=== PATIENT | female | born 1955 | race Hispanic/Latino ===

== ENCOUNTER 2019-04-07 20:56 | Inpatient (IN) | payer OTHER ==
[~2019-04-07] VITALS: Ht 167.6 cm; Wt 97.0 kg
[2019-04-07] MEDS ORDERED: MORPHINE SULFATE 2 MG/ML 1ML SYG ONE (21:41)
[2019-04-07] MEDS ORDERED: SODIUM CHLORIDE 0.9% 1000ML 1,000 ML IV ONE (21:42)
[2019-04-07 21:51] LABS: APPEARANCE,URINE Clear (CLEAR); BILIRUBIN,URINE Small (NEGATIVE); COLOR,URINE Dark Yellow (YELLOW); GLUCOSE, URINE (UA) Negative (NEGATIVE); KETONES,URINE Negative (NEGATIVE); LEUKOCYTE ESTERASE ,URINE Trace (NEGATIVE); NITRATE,URINE Negative (NEGATIVE); OCCULT BLOOD,URINE Negative (NEGATIVE); PH,URINE 6.5 (5.0-8.0); PROTEIN,URINE Negative (NEGATIVE); UROBILINOGEN,URINE >=8.0 mg/dL (0.2-1.0)
[2019-04-07 22:01] LABS: BASOPHILS % (AUTO) 0.5 % (0.0-5.0); EOSINOPHILS % (AUTO) 0.5 % (0.0-8.0); HEMATOCRIT 34.6 % (36-48); LYMPHOCYTES % (AUTO) 28.1 % (21.0-51.0); MEAN CORPUSCULAR HEMOGLOBIN 32.9 pg (27.0-33.0); MEAN CORPUSCULAR HGB CONC 34.8 g/dL (32.0-36.0); MEAN CORPUSCULAR VOLUME 94.5 fL (79-99); MONOCYTES % (AUTO) 7.6 % (3.0-13.0); NEUTROPHILS % (AUTO) 63.3 % (40.0-77.0); NUCLEATED RED BLOOD CELLS 0.1 % (0.0-0.19); PLATELET COUNT (AUTO) 112 K/uL (130-400); RED BLOOD CELL COUNT(AUTO) 3.66 MIL/uL (4.00-5.50); RED CELL DISTRIBUTION WIDTH 14.9 % (11.0-15.5); WHITE BLOOD COUNT (AUTO) 7.4 K/uL (4.8-10.8)
[2019-04-07 22:01] LABS: BACTERIA,URINE Rare /HPF (None Seen); MUCUS,URINE Rare LPF (None Seen); RBC,URINE 0-1 /HPF (0-1); SQUAMOUS EPITHELIAL CELL,UR Rare /HPF (0-2)
[2019-04-07 22:12] LABS: CREATININE 0.7 mg/dL (0.5-1.5); POTASSIUM 3.5 mmol/L (3.5-5.1)
[2019-04-07 22:16] LABS: ALBUMIN 2.4 g/dL (3.5-5.0); BILIRUBIN,TOTAL 1.9 mg/dL (0.2-1.0); TOTAL PROTEIN, SERUM 6.8 g/dL (6.0-8.3)
[2019-04-07] MEDS ORDERED: DIATR MEGLU/DIATRIZOATE SODIUM 30 ML BOTTLE ONE (23:01)
[2019-04-07] MEDS ORDERED: ACETAMINOPHEN 325 MG TAB PO PRN (23:45)
[2019-04-07] MEDS ORDERED: LORAZEPAM 2 MG/ML 1 ML VIAL IVP PRN (23:45)
[2019-04-07] MEDS ORDERED: ONDANSETRON HCL 4 MG/2 ML VIAL IV PRN (23:45)
[2019-04-08] MEDS ORDERED: IOHEXOL 350 MG/ML 100ML INFUS..BTL IV ONE (00:40)
[2019-04-08 01:15] VITALS: BP 120/65
[2019-04-08 03:56] VITALS: BP 125/74
[2019-04-08] MEDS: SODIUM CHLORIDE 0.9% 1000ML 1,000 ML IV SCH ×3 (04:14→19:37)
[2019-04-08] MEDS: MORPHINE SULFATE 4 MG/1ML SYG IV PRN ×2 (07:46→16:09)
[2019-04-08 08:00] VITALS: BP 112/63
[2019-04-08] MEDS: FAMOTIDINE/PF 20 MG/2 ML VIAL IV SCH ×2 (08:24→21:13)
[2019-04-08] MEDS: ENOXAPARIN SODIUM 30 MG/0.3 ML SQ SCH ×2 (09:00→21:15)
--- NOTE | 2019-04-08 09:43 | NUR ---
SIMBA Muhammad met with pt who states that she lives with common law of 40 yrs,2 adult sons (36) and her sister who is [employer] - total care. 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 Because of her critical care clinical nurse specialist role, pt has not followed up on her care. Pt reports she was independent, no DME or HH prior to dc. Pt states she has started feeling really bad in recent weeks and has become weaker and loss of appetite. 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 Sister Umm Boyd [phone] is assisting with sister in law and sons are caring for their dad. Plan is home at ar Addendum: 04/08/19 at 0952 by JF FLOWERS Amended: Links added.
[2019-04-08 12:00] VITALS: BP 110/63
[2019-04-08 15:59] VITALS: BP 118/70
[2019-04-08 19:00] VITALS: BP 119/74
--- NOTE | 2019-04-08 19:12 | NUR ---
SURGICAL CONSULT Dr. Batista is aware of consult. He was notified in person by Dr. Berg during his rounds.
--- NOTE | 2019-04-08 20:13 | NUR ---
LOVENOX Held MA dose of lovenox S/T platelets at 112. Dr. Berg made aware and OK it.
[2019-04-08] MEDS: TEMAZEPAM 7.5 MG CAPSULE PO SCH (21:13)
[2019-04-08] MEDS ORDERED: POTASSIUM CHLORIDE 20 MEQ ERTAB PO SCH (21:15)
[2019-04-09] VITALS: BP 119/67
[2019-04-09] MEDS: ACETAMINOPHEN 325 MG TAB PO PRN (01:57)
[2019-04-09] MEDS: SODIUM CHLORIDE 0.9% 1000ML 1,000 ML IV SCH ×2 (02:03→13:18)
[2019-04-09 02:32] LABS: HEMATOCRIT 32.3 % (36-48); MEAN CORPUSCULAR HEMOGLOBIN 32.1 pg (27.0-33.0); MEAN CORPUSCULAR VOLUME 93.6 fL (79-99); RED BLOOD CELL COUNT(AUTO) 3.45 MIL/uL (4.00-5.50); WHITE BLOOD COUNT (AUTO) 6.1 K/uL (4.8-10.8)
[2019-04-09 02:33] LABS: EOSINOPHILS % (AUTO) 0.4 % (0.0-8.0); LYMPHOCYTES % (AUTO) 32.6 % (21.0-51.0); MEAN CORPUSCULAR HGB CONC 34.3 g/dL (32.0-36.0); MONOCYTES % (AUTO) 9.5 % (3.0-13.0); NEUTROPHILS % (AUTO) 57.3 % (40.0-77.0); PLATELET COUNT (AUTO) 92 K/uL (130-400); RED CELL DISTRIBUTION WIDTH 14.6 % (11.0-15.5)
[2019-04-09 02:34] LABS: BASOPHILS % (AUTO) 0.2 % (0.0-5.0); NUCLEATED RED BLOOD CELLS 0.1 % (0.0-0.19)
[2019-04-09 02:36] LABS: POTASSIUM 3.8 mmol/L (3.5-5.1)
[2019-04-09 02:37] LABS: ALBUMIN 1.9 g/dL (3.5-5.0); CREATININE 0.5 mg/dL (0.5-1.5); MAGNESIUM 1.5 mg/dL (1.80-2.40); PHOSPHORUS 2.5 mg/dL (2.5-4.9)
[2019-04-09] MEDS ORDERED: MAGNESIUM 2GM PREMIX 50ML 50 ML IV PRN ×2 (03:30→04:45)
--- NOTE | 2019-04-09 03:30 | NUR ---
Magnesium: 1.50 Magnesium result ( 1.50) was referred to on-call hospitalist. Written order made to place pt. on Magnesium protocol for <2.0. Magnesium 2gms per 50ml was administered as ordered at around 0435 am. Reported to AM shift accordingly.
[2019-04-09] MEDS ORDERED: MAGNESIUM 2GM PREMIX 50ML 50 ML IV ONE (04:33)
[2019-04-09 07:30] VITALS: BP 127/71
--- NOTE | 2019-04-09 08:31 | NUR ---
Notified Faith with IR pt's platlets at 92. She stated that should not be a problem, also notified her pt. received Juan last night @ 2100.
[2019-04-09 08:55] LABS: INR 1.28 (0.85-1.15); PARTIAL THROMBOPLASTIN TIME 35.3 SEC (26.3-35.5); PROTHROMBIN TIME 13.4 SEC (9.6-11.6)
[2019-04-09] MEDS: ENOXAPARIN SODIUM 30 MG/0.3 ML SQ SCH ×2 (09:00→21:00)
[2019-04-09] MEDS: FAMOTIDINE/PF 20 MG/2 ML VIAL IV SCH ×2 (09:01→21:14)
[2019-04-09 11:00] VITALS: BP 107/41
--- NOTE | 2019-04-09 11:31 | NUR ---
PROCEDURE DR Radha JULIO NOTIFIED OF SCHEDULED LIVER BIOPSY AND LOVENOX DOSE GIVEN LAST NIGHT AT 2100. PATIENT RESCHEDULED FOR TOMORROW IN AM AND HOLD LOVENOX. PROCEDURE OUTCOME REPORTED TO Leslee RESTREPO RN.
[2019-04-09] MEDS: MORPHINE SULFATE 4 MG/1ML SYG IV PRN (13:18)
[2019-04-09 16:00] VITALS: BP 118/72
[2019-04-09 19:00] VITALS: BP 112/76
[2019-04-09] MEDS: TEMAZEPAM 7.5 MG CAPSULE PO SCH (21:14)
[2019-04-10] VITALS (10 sets, daily range): BP systolic 96–154; BP diastolic 54–106
[2019-04-10] MEDS: SODIUM CHLORIDE 0.9% 1000ML 1,000 ML IV SCH ×3 (01:37→21:37)
[2019-04-10] MEDS ORDERED: SODIUM CHLORIDE 0.9% 100 ML IV ONE (02:49)
[2019-04-10] MEDS: MORPHINE SULFATE 4 MG/1ML SYG IV PRN ×3 (02:54→12:08)
[2019-04-10] MEDS: ACETAMINOPHEN 325 MG TAB PO PRN ×2 (03:16→12:14)
[2019-04-10 04:57] LABS: HEMATOCRIT 29.3 % (36-48); MEAN CORPUSCULAR HEMOGLOBIN 32.2 pg (27.0-33.0); MEAN CORPUSCULAR HGB CONC 34.5 g/dL (32.0-36.0); MEAN CORPUSCULAR VOLUME 93.3 fL (79-99); NUCLEATED RED BLOOD CELLS 0.2 % (0.0-0.19); PLATELET COUNT (AUTO) 110 K/uL (130-400); RED BLOOD CELL COUNT(AUTO) 3.14 MIL/uL (4.00-5.50); RED CELL DISTRIBUTION WIDTH 14.8 % (11.0-15.5); WHITE BLOOD COUNT (AUTO) 5.2 K/uL (4.8-10.8)
[2019-04-10 05:05] LABS: INR 1.28 (0.85-1.15); PARTIAL THROMBOPLASTIN TIME 34.9 SEC (26.3-35.5); PROTHROMBIN TIME 13.4 SEC (9.6-11.6)
[2019-04-10 05:06] LABS: CREATININE 0.5 mg/dL (0.5-1.5); MAGNESIUM 1.7 mg/dL (1.80-2.40); POTASSIUM 3.3 mmol/L (3.5-5.1)
[2019-04-10] MEDS: MAGNESIUM 2GM PREMIX 50ML 50 ML IV PRN (07:23)
[2019-04-10] MEDS: ENOXAPARIN SODIUM 30 MG/0.3 ML SQ SCH ×2 (09:00→19:51)
[2019-04-10] MEDS: FAMOTIDINE/PF 20 MG/2 ML VIAL IV SCH ×2 (09:00→21:19)
--- NOTE | 2019-04-10 09:28 | NUR ---
Pt. taken for liver biopsy by IR, left via hospital bed in stable condition.
[2019-04-10] MEDS ORDERED: MIDAZOLAM HCL 1 MG/ML 2ML VIAL ONE (09:37)
[2019-04-10] MEDS ORDERED: FENTANYL CITRATE PF 50 MCG/1 ML 2ML VIAL ONE (09:37)
[2019-04-10] MEDS ORDERED: LIDOCAINE HCL-MPF 1% 2ML VIAL IVP PRN (10:30)
[2019-04-10] MEDS ORDERED: POTASSIUM CHLORIDE 10MEQ/100ML 100 ML IV PRN (10:30)
--- NOTE | 2019-04-10 11:00 | NUR ---
U/S GD RUQ DRAINAGE CATHETER PLACEMENT PATIENT ORIGINALLY SCHEDULED FOR LIVER BIOPSY FOR ABDOMINAL MASS ADJACENT TO LIVER. PROCEDURE PERFORMED BY DR Radha JULIO. PUNCTURE SITE RUQ. FLUID ASPIRATED FROM BIOPSY NEEDLE AND PROCEDURE CHAGED TO DRAINAGE CATHETER PLACEMENT. 10FR PIGTAIL CATHETER PLACED TO RUQ FLUID COLLECTION AND CONNECTED TO DRAINAGE BAG. CATHETER SUTURED IN PLACE AND DRESSING APPLIED. END OF PROCEDURE AT 1030. PATIENT TOLERATED PROCEDURE WELL WITH NO C/O PAIN. REPORT GIVEN TO Leslee RESTREPO RN AND PATIENT TRANSPORTED TO [facility] VIA BED.
--- NOTE | 2019-04-10 11:10 | NUR ---
Pt. back from Liver biopsy, per report from [facility], the radiologist states it was an abscess, accordion drain was placed to the right upper posterior lateral area. Draining a cloudy pink drainage. Pt. currently in stable condition, denies c/o pain.
[2019-04-10] MEDS ORDERED: IPRATROPIUM/ALBUTEROL SULFATE 3 ML SOLUTION IH SCH (11:58)
--- NOTE | 2019-04-10 12:00 | NUR ---
Pt. c/o SOB and chest pain, chills, shivering, called a rapid response, v/s assessed, refer to Rapid response Team Event Record. Pt. transferred to to CCU room 222, report had been called to [facility] receiving pt. Family members notified and went down to the 2nd floor. Pt's possessions transferred with her.
[2019-04-10] MEDS ORDERED: MORPHINE SULFATE 20MG/ML ORAL 0.25 ML PO STA (12:03)
[2019-04-10] MEDS ORDERED: MORPHINE SULFATE 2 MG/ML 1ML SYG IVP SCH (12:05)
[2019-04-10] MEDS ORDERED: IPRATROPIUM 0.5 MG/2.5 ML INH IH ONE (12:07)
[2019-04-10] MEDS ORDERED: NITROGLYCERIN 0.4 MG SL TAB SL SCH (12:07)
[2019-04-10] MEDS ORDERED: VANCOMYCIN PROTOCOL PER PHARMACY IV STA (12:09)
[2019-04-10] MEDS ORDERED: NITROGLYCERIN 0.4 MG SL TAB SL ONE (12:09)
--- NOTE | 2019-04-10 12:20 | NUR ---
NOTE CALLED 1531 SPOKE TO JAMEL RN AT RADIOLOGY DEPARTMENT FOR PATIENT JUST UNDERWENT BIOPSY/DRAIN PLACEMENT WITH DR JULIO PRIOR TO STARTING WITH FOLLOWING SYMPTOMS: CHEST PAIN NOT RELIEVED BY NITRO AND MORPHINE, SOB, CHILLS AND ELEVATED HEART RATE IN THE 140'S AND SBP 140'S. INFORMED HER ABOUT THE RAPID RESPONSE THAT WAS CALLED AND SYMPTOMS PATIENT HAS. SHE WILL INFORM RADIOLOGIST.
[2019-04-10] MEDS ORDERED: COMPOUND IV REFRIGERATED 1 EACH IVSOLN MISC PRN (12:30)
[2019-04-10] MEDS ORDERED: VANCOMYCIN PROTOCOL PER PHARMACY IV SCH (12:30)
[2019-04-10 12:31] LABS: CREATINE KINASE, TOTAL 22 U/L (21-232); MYOGLOBIN 21 ng/mL (10-92); TROPONIN I < 0.04 ng/mL (0.00-0.06)
--- NOTE | 2019-04-10 12:40 | NUR ---
NOTE PATIENT TRANSFERRED TO PCCU RM 222. SBP IN THE 140'S. HEART RATE 120'S. EKG ATTEMPTS SHOWED A LOT OF ARTIFACT DUE TO SEVERE CHILLS, ONE OF THE EKG'S SHOWED A-FIB. [place] WITH HOSPITALIST GROUP HAS ORDERED CARDIOLOGY CONSULT AND INFECTIOUS DISEASE CONSULT. PATIENT CHILLS ARE LESS SEVERE BY NOW WHILE BEING TRANSFERRED AND TEMPERATURE IS STARTING TO CLIMB UP WIT ALMOST 99 DEGREES. SHE IS NOT C/O CHEST PAIN AT THIS TIME AND WAS GIVEN MORPHINE AND NITRO SL EARLIER.
[2019-04-10] MEDS: ZOSYN 3.375GM+NS 50ML 50 ML IV SCH ×2 (12:53→21:15)
[2019-04-10] MEDS: POTASSIUM CHLORIDE 10% ELIXIR 20 MEQ/15 ML UDCUP PO PRN ×2 (12:53→16:03)
[2019-04-10] MEDS: VANCOMYCIN 1.5 GM in SODIUM CHLORIDE 0.9% 250 ML IV SCH (13:30)
[2019-04-10] MEDS ORDERED: LACTATED RINGERS 1000ML IV PRN (15:30)
[2019-04-10] MEDS: LACTATED RINGERS 1000ML 1,000 ML IV SCH (15:49)
[2019-04-10] MEDS: TEMAZEPAM 7.5 MG CAPSULE PO SCH (21:19)
[2019-04-11] VITALS (7 sets, daily range): BP systolic 94–117; BP diastolic 55–71
[2019-04-11] MEDS: VANCOMYCIN 1.5 GM in SODIUM CHLORIDE 0.9% 250 ML IV SCH ×3 (00:47→21:56)
[2019-04-11] MEDS: LACTATED RINGERS 1000ML 1,000 ML IV SCH ×3 (01:30→21:30)
[2019-04-11] MEDS: MORPHINE SULFATE 2 MG/ML 1ML SYG IV PRN ×2 (02:49→02:57)
[2019-04-11 03:28] LABS: BASOPHILS % (AUTO) 0.5 % (0.0-5.0); EOSINOPHILS % (AUTO) 2.1 % (0.0-8.0); HEMATOCRIT 30.2 % (36-48); LYMPHOCYTES % (AUTO) 34.9 % (21.0-51.0); MEAN CORPUSCULAR HEMOGLOBIN 33.3 pg (27.0-33.0); MEAN CORPUSCULAR HGB CONC 35.3 g/dL (32.0-36.0); MEAN CORPUSCULAR VOLUME 94.2 fL (79-99); MONOCYTES % (AUTO) 12.3 % (3.0-13.0); NEUTROPHILS % (AUTO) 50.2 % (40.0-77.0); NUCLEATED RED BLOOD CELLS 0.2 % (0.0-0.19); PLATELET COUNT (AUTO) 82 K/uL (130-400); RED BLOOD CELL COUNT(AUTO) 3.21 MIL/uL (4.00-5.50)
[2019-04-11 03:37] LABS: CREATININE 0.5 mg/dL (0.5-1.5); POTASSIUM 3.6 mmol/L (3.5-5.1)
[2019-04-11] MEDS: ZOSYN 3.375GM+NS 50ML 50 ML IV SCH ×3 (05:10→21:56)
[2019-04-11] MEDS: ENOXAPARIN SODIUM 30 MG/0.3 ML SQ SCH ×2 (09:30→21:00)
[2019-04-11] MEDS: POTASSIUM CHLORIDE 20 MEQ ERTAB PO PRN (09:31)
[2019-04-11] MEDS: FAMOTIDINE 20MG TAB 20 MG TAB PO SCH ×2 (09:39→21:56)
[2019-04-11] MEDS: POTASSIUM CHLORIDE 10% ELIXIR 20 MEQ/15 ML UDCUP PO PRN ×2 (09:45→12:46)
[2019-04-11 10:17] LABS: HEPATITIS A ANTIBODY IGM Negative (Negative); HEPATITIS B CORE IGM Negative (Negative); HEPATITIS Bs ANTIGEN SCREEN P Negative (Negative)
[2019-04-11] MEDS: MORPHINE SULFATE 4 MG/1ML SYG IV PRN (14:07)
--- NOTE | 2019-04-11 18:00 | NUR ---
TRANSFER TELEPHONE REPORT GIVEN TO Gloria CORONEL RN.
--- NOTE | 2019-04-11 18:15 | NUR ---
TRANSFER PT TRANSFERRED TO 312 VIA BED BY Mika CALDERON & MReina BULLOCK RN(MYSELF). TOLERATED TRANSFER WELL. NO DISTRESS NOTED. TELE JOAN REMOVED.
--- NOTE | 2019-04-11 21:05 | NUR ---
ADJUNCT FACULTY INSTRUCTOR. HELD PLATELETS 82K , DIGITAL DIRECTOR MAY INFORMED,WITH ORDER TO HOLD DOSE AT THIS TIME Addendum: 04/12/19 at 0136 by DEBORAH CANCINO RN RN Amended: Links added.
[2019-04-11] MEDS: TEMAZEPAM 7.5 MG CAPSULE PO SCH (22:09)
[2019-04-12] VITALS: BP 112/61
[2019-04-12 04:00] VITALS: BP 114/63
[2019-04-12 04:28] LABS: HEMATOCRIT 29.5 % (36-48); MEAN CORPUSCULAR HEMOGLOBIN 31.8 pg (27.0-33.0); MEAN CORPUSCULAR HGB CONC 33.9 g/dL (32.0-36.0); MEAN CORPUSCULAR VOLUME 93.8 fL (79-99); NUCLEATED RED BLOOD CELLS 0.1 % (0.0-0.19); PLATELET COUNT (AUTO) 94 K/uL (130-400); RED BLOOD CELL COUNT(AUTO) 3.15 MIL/uL (4.00-5.50); RED CELL DISTRIBUTION WIDTH 15.1 % (11.0-15.5); WHITE BLOOD COUNT (AUTO) 3.5 K/uL (4.8-10.8)
[2019-04-12] MEDS: ZOSYN 3.375GM+NS 50ML 50 ML IV SCH ×3 (04:34→20:46)
[2019-04-12 04:40] LABS: ALBUMIN 1.6 g/dL (3.5-5.0); CREATININE 0.6 mg/dL (0.5-1.5); POTASSIUM 3.4 mmol/L (3.5-5.1)
[2019-04-12] MEDS: POTASSIUM CHLORIDE 20 MEQ ERTAB PO PRN (04:57)
[2019-04-12] MEDS: MAGNESIUM 2GM PREMIX 50ML 50 ML IV PRN (05:11)
[2019-04-12] MEDS: POTASSIUM CHLORIDE 10% ELIXIR 20 MEQ/15 ML UDCUP PO PRN (05:11)
[2019-04-12 08:00] VITALS: BP 100/63
[2019-04-12] MEDS: FAMOTIDINE 20MG TAB 20 MG TAB PO SCH ×2 (09:59→20:46)
[2019-04-12] MEDS: VANCOMYCIN 1.5 GM in SODIUM CHLORIDE 0.9% 250 ML IV SCH ×2 (10:00→21:00)
[2019-04-12] MEDS: ENOXAPARIN SODIUM 30 MG/0.3 ML SQ SCH ×2 (10:00→20:46)
[2019-04-12] MEDS: MORPHINE SULFATE 2 MG/ML 1ML SYG IV PRN (10:31)
[2019-04-12 12:00] VITALS: BP 123/73
[2019-04-12 16:00] VITALS: BP 108/77
[2019-04-12 19:46] VITALS: BP 107/74
[2019-04-12] MEDS: TEMAZEPAM 7.5 MG CAPSULE PO SCH (20:46)
[2019-04-13] VITALS (7 sets, daily range): BP systolic 98–134; BP diastolic 62–80
[2019-04-13] MEDS: ZOSYN 3.375GM+NS 50ML 50 ML IV SCH ×3 (04:16→21:16)
[2019-04-13 06:27] LABS: BASOPHILS % (AUTO) 0.5 % (0.0-5.0); EOSINOPHILS % (AUTO) 4.1 % (0.0-8.0); HEMATOCRIT 29.2 % (36-48); LYMPHOCYTES % (AUTO) 37.5 % (21.0-51.0); MEAN CORPUSCULAR HEMOGLOBIN 32.7 pg (27.0-33.0); MEAN CORPUSCULAR HGB CONC 34.5 g/dL (32.0-36.0); MEAN CORPUSCULAR VOLUME 94.7 fL (79-99); MONOCYTES % (AUTO) 9.4 % (3.0-13.0); NEUTROPHILS % (AUTO) 48.5 % (40.0-77.0); NUCLEATED RED BLOOD CELLS 0.2 % (0.0-0.19); PLATELET COUNT (AUTO) 94 K/uL (130-400); RED BLOOD CELL COUNT(AUTO) 3.08 MIL/uL (4.00-5.50); RED CELL DISTRIBUTION WIDTH 15.2 % (11.0-15.5)
[2019-04-13 06:54] LABS: CREATININE 0.6 mg/dL (0.5-1.5); POTASSIUM 3.2 mmol/L (3.5-5.1)
[2019-04-13] MEDS: POTASSIUM CHLORIDE 10% ELIXIR 20 MEQ/15 ML UDCUP PO PRN ×3 (07:15→18:11)
[2019-04-13 08:39] LABS: EOSINOPHILS % (MANUAL) 3 % (1-6); LYMPHOCYTES % (MANUAL) 27 % (22-44); MONOCYTES % (MANUAL) 8 % (2-9); SEGMENTED NEUTROPHILS % 62 % (40-70)
[2019-04-13 08:44] LABS: PLATELET MORPHOLOGY COMMENT DECREASED
[2019-04-13 08:50] LABS: MAN.DIFF COMMENT-IMPRESSION MANUAL DIFFERENTIAL
[2019-04-13] MEDS: VANCOMYCIN 1.5 GM in SODIUM CHLORIDE 0.9% 250 ML IV SCH ×2 (10:01→21:22)
[2019-04-13] MEDS: FAMOTIDINE 20MG TAB 20 MG TAB PO SCH ×2 (10:01→21:16)
[2019-04-13] MEDS: ENOXAPARIN SODIUM 30 MG/0.3 ML SQ SCH ×2 (10:02→21:16)
--- NOTE | 2019-04-13 17:56 | NUR ---
PT extra note 04/13/19: Pt's SpO2 was 84% after gait (O2 not used while walking). After a few seconds of rest + pt using the O2 again ( nasal canula), SpO2 increased to 94%. Note: earlier, during my first attempt to do gait training with patient, patient repeatedly said that she did not need and did not want the O2 ( I did counseling center director her on using the O2). Addendum: 04/13/19 at 1759 by ORTEGA NARAYAN PT Amended: Links added.
[2019-04-13] MEDS: TEMAZEPAM 7.5 MG CAPSULE PO SCH (21:16)
[2019-04-14] MEDS: MORPHINE SULFATE 2 MG/ML 1ML SYG IV PRN (03:39)
[2019-04-14 04:00] VITALS: BP 119/68
[2019-04-14] MEDS: ZOSYN 3.375GM+NS 50ML 50 ML IV SCH ×3 (04:22→23:14)
[2019-04-14 05:51] LABS: BASOPHILS % (AUTO) 0.5 % (0.0-5.0); EOSINOPHILS % (AUTO) 4.2 % (0.0-8.0); LYMPHOCYTES % (AUTO) 35.7 % (21.0-51.0); MEAN CORPUSCULAR HEMOGLOBIN 31.9 pg (27.0-33.0); MEAN CORPUSCULAR HGB CONC 33.7 g/dL (32.0-36.0); MEAN CORPUSCULAR VOLUME 94.4 fL (79-99); MONOCYTES % (AUTO) 11.4 % (3.0-13.0); NEUTROPHILS % (AUTO) 48.2 % (40.0-77.0); NUCLEATED RED BLOOD CELLS 0.1 % (0.0-0.19); PLATELET COUNT (AUTO) 103 K/uL (130-400); RED BLOOD CELL COUNT(AUTO) 3.18 MIL/uL (4.00-5.50); RED CELL DISTRIBUTION WIDTH 15.4 % (11.0-15.5); WHITE BLOOD COUNT (AUTO) 3.2 K/uL (4.8-10.8)
[2019-04-14 06:04] LABS: CREATININE 0.7 mg/dL (0.5-1.5); POTASSIUM 3.3 mmol/L (3.5-5.1)
[2019-04-14] MEDS: POTASSIUM CHLORIDE 10% ELIXIR 20 MEQ/15 ML UDCUP PO PRN ×2 (06:29→09:46)
[2019-04-14] MEDS ORDERED: POTASSIUM CHLORIDE 20 MEQ ERTAB PO PRN (07:30)
[2019-04-14] MEDS ORDERED: LACTULOSE 20 GM/30 ML UDCUP PO PRN (07:30)
[2019-04-14] MEDS ORDERED: LIDOCAINE HCL-MPF 1% 2ML VIAL IVP PRN (07:30)
[2019-04-14] MEDS ORDERED: POTASSIUM CHLORIDE 20MEQ/100ML 100 ML IV PRN (07:30)
[2019-04-14 08:00] VITALS: BP 100/64
[2019-04-14] MEDS: VANCOMYCIN 1.5 GM in SODIUM CHLORIDE 0.9% 250 ML IV SCH ×2 (09:45→23:14)
[2019-04-14] MEDS: FAMOTIDINE 20MG TAB 20 MG TAB PO SCH ×2 (09:45→23:14)
[2019-04-14] MEDS: ENOXAPARIN SODIUM 30 MG/0.3 ML SQ SCH ×2 (09:52→23:15)
[2019-04-14] MEDS ORDERED: DOCUSATE SODIUM 100 MG CAP PO PRN (10:30)
[2019-04-14 11:00] VITALS: BP 103/70
[2019-04-14 16:00] VITALS: BP 104/71
[2019-04-14 20:35] VITALS: BP 140/76
[2019-04-14] MEDS: TEMAZEPAM 7.5 MG CAPSULE PO SCH (23:14)
[2019-04-14 23:45] VITALS: BP 138/76
[2019-04-15 05:23] VITALS: BP 130/62
[2019-04-15] MEDS: ZOSYN 3.375GM+NS 50ML 50 ML IV SCH ×2 (06:12→12:52)
[2019-04-15] MEDS: POTASSIUM CHLORIDE 10% ELIXIR 20 MEQ/15 ML UDCUP PO PRN (06:39)
[2019-04-15 08:00] VITALS: BP 136/65
[2019-04-15] MEDS ORDERED: POTASSIUM CHLORIDE 20 MEQ ERTAB PO SCH (08:30)
[2019-04-15] MEDS: VANCOMYCIN 1.5 GM in SODIUM CHLORIDE 0.9% 250 ML IV SCH (09:49)
[2019-04-15] MEDS: FAMOTIDINE 20MG TAB 20 MG TAB PO SCH (09:49)
[2019-04-15] MEDS: ENOXAPARIN SODIUM 30 MG/0.3 ML SQ SCH (09:58)
[2019-04-15] MEDS ORDERED: MORPHINE SULFATE 4 MG/1ML SYG IV PRN (11:00)
[2019-04-15] MEDS ORDERED: MORPHINE SULFATE 2 MG/ML 1ML SYG IVP PRN (11:00)
[2019-04-15] MEDS ORDERED: CEPH500B PO (11:28)
[2019-04-15 12:00] VITALS: BP 122/70
--- NOTE | 2019-04-15 16:00 | NUR ---
PATIENT REQUESTED THAT DISCHARGE INSTRUCTIONS BE GIVEN TO HER WHEN HER SISTER COMES TO TAKE HER HOME. SHE SAID THAT SISTER IS AT WORK UNTIL 5:00 PM.
--- NOTE | 2019-04-15 18:45 | NUR ---
DISCHARGE INSTRUCTIONS WERE REVIEWED WITH THE PATIENT AND HER SISTER AND FOLLOW-UP SCHEDULED AND GIVEN TO HER. EDUCATION WAS PROVIDED ON HOW TO EMPTY THE DRAINAGE BAG SHE VERBALIZED UNDERSTANDING. LEFT THE UNIT IN STABLE STATE VIA WHEELCHAIR ACCOMPANIED BY HER SISTER AND FLOOR LEPIDOPTERIST.
== END 2019-04-15 18:47 | disposition home or self-care (01) | DRG 871 ==
LOC: EDH 20:56 → EDHIP 20:57 → 3AH 04-08 00:19 → 2DH 04-10 12:16 → 3BH 04-11 18:37
PROVIDERS: ADMIT Internal Medicine; ATTEND Internal Medicine
PROC: 0F9030Z Drainage of Liver with Drainage Device, Percutaneous Approach (ICD-10-PCS; principal; 2019-04-10)
PROC: 30233R1 Transfusion of Nonautologous Platelets into Peripheral Vein, Percutaneous Approach (ICD-10-PCS; 2019-04-10)
DX: A41.9 Sepsis, unspecified organism (principal); K65.1 Peritoneal abscess; K75.0 Abscess of liver; E44.0 Moderate protein-calorie malnutrition; E87.1 Hypo-osmolality and hyponatremia; I85.00 Esophageal varices without bleeding; K76.6 Portal hypertension; B96.1 Klebsiella pneumoniae [K. pneumoniae] as the cause of diseases classified elsewhere; R19.01 Right upper quadrant abdominal swelling, mass and lump; R65.20 Severe sepsis without septic shock; D69.6 Thrombocytopenia, unspecified; E66.01 Morbid (severe) obesity due to excess calories; K02.9 Dental caries, unspecified; K74.69 Other cirrhosis of liver; N28.1 Cyst of kidney, acquired; Z68.34 Body mass index [BMI] 34.0-34.9, adult; Z90.49 Acquired absence of other specified parts of digestive tract
CPT/HCPCS: 10030; 36415; 36430; 71045; 71260; 74176; 74177; 76705; 76942; 80048; 80053; 80074; 80202; 81001; 82040; 82105; 82140; 82550; 82948; 83605; 83690; 83735; 83874; 84100; 84484; 85025; 85027; 85378; 85610; 85730; 86701; 86850; 86870; 86900; 86901; 86905; 86922; 87040; 87071; 87077; 87186; 87205; 87390; 93005; 93306; 94640; 97039; 99152; 99153; G0378; J1650; J2250; J2270; J2543; J3010; J3370; J3475; J3490; J7030; J7120; P9034; Q9963; Q9967

== ENCOUNTER 2019-05-04 13:12 | Emergency (ER) | payer OTHER ==
[~2019-05-04 13:12] MED LIST: CEPH500B PO
[2019-05-04 14:44] LABS: BASOPHILS % (AUTO) 1.1 % (0.0-5.0); EOSINOPHILS % (AUTO) 5.5 % (0.0-8.0); HEMATOCRIT 35.5 % (36-48); LYMPHOCYTES % (AUTO) 38.1 % (21.0-51.0); MEAN CORPUSCULAR HEMOGLOBIN 32.9 pg (27.0-33.0); MEAN CORPUSCULAR HGB CONC 33.9 g/dL (32.0-36.0); MEAN CORPUSCULAR VOLUME 96.9 fL (79-99); MONOCYTES % (AUTO) 9.9 % (3.0-13.0); NEUTROPHILS % (AUTO) 45.4 % (40.0-77.0); NUCLEATED RED BLOOD CELLS 0.2 % (0.0-0.19); PLATELET COUNT (AUTO) 51 K/uL (130-400); RED BLOOD CELL COUNT(AUTO) 3.66 MIL/uL (4.00-5.50); RED CELL DISTRIBUTION WIDTH 18.4 % (11.0-15.5); WHITE BLOOD COUNT (AUTO) 2.7 K/uL (4.8-10.8)
[2019-05-04 14:58] LABS: INR 1.15 (0.85-1.15); PARTIAL THROMBOPLASTIN TIME 31.3 SEC (26.3-35.5)
[2019-05-04 15:00] LABS: ALBUMIN 2.6 g/dL (3.5-5.0); BILIRUBIN,TOTAL 1.9 mg/dL (0.2-1.0); CREATININE 0.7 mg/dL (0.5-1.5); TOTAL PROTEIN, SERUM 6.9 g/dL (6.0-8.3)
[2019-05-04 15:01] LABS: POTASSIUM 2.8 mmol/L (3.5-5.1)
[2019-05-04] MEDS ORDERED: POTASSIUM CHLORIDE 10% ELIXIR 20 MEQ/15 ML UDCUP ONE (15:15)
[2019-05-04 15:23] LABS: EOSINOPHILS % (MANUAL) 6 % (1-6); LYMPHOCYTES % (MANUAL) 36 % (22-44); MAN.DIFF COMMENT-IMPRESSION MANUAL DIFFERENTIAL; MONOCYTES % (MANUAL) 8 % (2-9); SEGMENTED NEUTROPHILS % 50 % (40-70)
[2019-05-04] MEDS ORDERED: TRAMADOL HCL 50 MG TABLET ONE (15:39)
== END 2019-05-04 15:56 | disposition home or self-care (01) ==
LOC: EDH 13:12
DX: K75.0 Abscess of liver (principal); E11.9 Type 2 diabetes mellitus without complications; I10 Essential (primary) hypertension
CPT/HCPCS: 36415; 71045; 74176; 80053; 82150; 82550; 83690; 84484; 85025; 85610; 85730; 87071; 87205; 93005

== ENCOUNTER 2019-05-23 08:52 | Day surgery (SDC) | payer OTHER, SELFPAY ==
[2019-05-21 11:48] VITALS: BP 146/73
[2019-05-21 11:55] LABS: BASOPHILS % (AUTO) 0.6 % (0.0-5.0); EOSINOPHILS % (AUTO) 5.5 % (0.0-8.0); HEMATOCRIT 38.5 % (36-48); LYMPHOCYTES % (AUTO) 44.6 % (21.0-51.0); MEAN CORPUSCULAR HEMOGLOBIN 33.5 pg (27.0-33.0); MEAN CORPUSCULAR HGB CONC 33.9 g/dL (32.0-36.0); MONOCYTES % (AUTO) 9.7 % (3.0-13.0); NEUTROPHILS % (AUTO) 39.6 % (40.0-77.0); NUCLEATED RED BLOOD CELLS 0.2 % (0.0-0.19); PLATELET COUNT (AUTO) 46 K/uL (130-400); RED BLOOD CELL COUNT(AUTO) 3.89 MIL/uL (4.00-5.50); RED CELL DISTRIBUTION WIDTH 17.1 % (11.0-15.5); WHITE BLOOD COUNT (AUTO) 2.8 K/uL (4.8-10.8)
[2019-05-21 12:14] LABS: INR 1.1 (0.85-1.15); PARTIAL THROMBOPLASTIN TIME 34.1 SEC (26.3-35.5); PROTHROMBIN TIME 11.5 SEC (9.6-11.6)
[2019-05-21 12:44] LABS: CREATININE 0.6 mg/dL (0.5-1.5); POTASSIUM 3.4 mmol/L (3.5-5.1)
[2019-05-21 13:33] LABS: EOSINOPHILS % (MANUAL) 7 % (1-6); LYMPHOCYTES % (MANUAL) 42 % (22-44); MAN.DIFF COMMENT-IMPRESSION MANUAL DIFFERENTIAL; MONOCYTES % (MANUAL) 6 % (2-9); SEGMENTED NEUTROPHILS % 45 % (40-70)
[2019-05-21 13:34] LABS: PLATELET MORPHOLOGY COMMENT MARKED DECREASE
[~2019-05-23] VITALS: Ht 162.6 cm; Wt 89.7 kg
[~2019-05-23 08:52] MED LIST changes: +SODIUM CHLORIDE 0.9% 1000ML 1,000 ML IV ONE
[2019-05-23 09:05] VITALS: BP 136/73
--- NOTE | 2019-05-23 09:15 | NUR ---
NOTE CATHETER/DRAIN TO RIGHT LOWER BACK IN PLACE, NO DRAINAGE NOTED TO BAG, VERY SCANT DARK GREEN DRAINAGE TO TUBE ONLY, PT STATES IT HAS NOT BEEN DRAINING FOR MORE THAN A WEEK NOW, DRESSING DRY AND INTACT, SITE SOFT, NO LEAKING NOTED.
--- NOTE | 2019-05-23 10:20 | NUR ---
CT PT TAKEN TO [facility] FOR CT ABDOMEN VIA STRETCHER.
--- NOTE | 2019-05-23 13:27 | NUR ---
ABSCESS DRAIN REMOVAL DRESSING REMOVED FROM ABSCESS DRAIN. AREA PREPPED FOR REMOVAL. DRAIN CUT, PULLED BACK, AND REMOVED. CATHETER INTACT. PATIENT TOLERATED WELL. AREA COVERED WITH 4X4 DRESSING AND TEGADERM. HAND-OFF REPORT GIVEN TO SHAHID PARSONS.
[2019-05-23 13:45] VITALS: BP 126/78
--- NOTE | 2019-05-23 13:45 | NUR ---
RECEIVE POST PROCEDURE RECEIVED PT SEMI CASTILLO POSITION ON STRETCHER. AWAKE ALERT. STABLE. NO COMPLAINTS OTHER THAN SOME DISCOMFORT TO PUNCTURE SITE, DENIES PAIN. PT REPOSITIONED COMFORTABLY. DRESSING TO RIGHT LOWER BACK DRY AND INTACT, PUNCTURE SITE SOFT, NO BLEEDING NO HEMATOMA NO SWELLING NOTED. WILL CONTINUE TO MONITOR PT, SISTER AT BEDSIDE, CALL HALEY WITHIN REACH.
[2019-05-23 14:00] VITALS: BP 132/82
[2019-05-23 14:15] VITALS: BP 141/85
--- NOTE | 2019-05-23 14:28 | NUR ---
DISCHARGE PT DISCHARGED VIA WHEELCHAIR WITH SISTER. PT STABLE. NO COMPLAINTS MADE. DRESSING TO PUNCTURE SITE RT LOWER BACK DRY AND INTACT, NO BLEEDING NOTED, SITE SOFT, NO SWELLING NO HEMATOMA NOTED. PT TOLERATED ORAL INTAKE WELL, DRANK WATER AND ATE DARIAN CRACKERS. DISCHARGE INSTRUCTIONS GIVEN TO PT AND SISTER, BOTH VERBALIZED UNDERSTANDING. PT VOIDED PRIOR TO DISCHARGE.
== END 2019-05-23 14:28 | disposition home or self-care (01) ==
LOC: DAH 08:52
PROVIDERS: ATTEND Surgery
DX: K76.6 Portal hypertension (principal); R19.00 Intra-abdominal and pelvic swelling, mass and lump, unspecified site; I25.10 Atherosclerotic heart disease of native coronary artery without angina pectoris; I10 Essential (primary) hypertension; Z79.2 Long term (current) use of antibiotics; Z82.49 Family history of ischemic heart disease and other diseases of the circulatory system
CPT/HCPCS: 36415; 74150; 80048; 82948 ×2; 85025; 85610; 85730; A4606; J7030

== ENCOUNTER 2021-05-05 13:32 | Emergency (ER) | payer OTHER ==
[~2021-05-05] VITALS: Ht 157.5 cm; Wt 102.1 kg
[~2021-05-05 13:32] MED LIST changes: -SODIUM CHLORIDE 0.9% 1000ML 1,000 ML IV ONE
[2021-05-05 14:42] LABS: BASOPHILS % (AUTO) 0.2 % (0.0-5.0); EOSINOPHILS % (AUTO) 1.1 % (0.0-8.0); HEMATOCRIT 35.8 % (36-48); LYMPHOCYTES % (AUTO) 73.7 % (21.0-51.0); MEAN CORPUSCULAR HEMOGLOBIN 29.4 pg (27.0-33.0); MEAN CORPUSCULAR HGB CONC 32.7 g/dL (32.0-36.0); MEAN CORPUSCULAR VOLUME 89.9 fL (79-99); MONOCYTES % (AUTO) 4.2 % (3.0-13.0); NEUTROPHILS % (AUTO) 20.6 % (40.0-77.0); PLATELET COUNT (AUTO) 33 K/uL (130-400); RED BLOOD CELL COUNT(AUTO) 3.98 MIL/uL (4.00-5.50); RED CELL DISTRIBUTION WIDTH 19.2 % (11.0-15.5); WHITE BLOOD COUNT (AUTO) 4.8 K/uL (4.8-10.8)
[2021-05-05 14:55] LABS: CARBON DIOXIDE 26 mmol/L (21-32); CHLORIDE 105 mmol/L (101-111); CREATININE 0.8 mg/dL (0.5-1.5); GLOMERULAR FILTR. RATE CALC 77 mL/min (>60); GLUCOSE,RANDOM 382 mg/dL (70-105); POTASSIUM 4.3 mmol/L (3.5-5.1); SODIUM SERUM 137 mmol/L (136-145); UREA NITROGEN, BLOOD 15 mg/dL (7-18)
[2021-05-05 14:57] LABS: INR 1.26 (0.85-1.15); PROTHROMBIN TIME 13.4 SEC (9.6-11.6)
[2021-05-05 15:06] LABS: ALANINE AMINOTRANSFERASE 39 U/L (12-78); ALBUMIN 2.8 g/dL (3.5-5.0); ASPARTATE AMINOTRANSFERASE 32 U/L (10-37); BILIRUBIN,TOTAL 2.3 mg/dL (0.2-1.0); CREATINE KINASE, TOTAL 68 U/L (21-232); MYOGLOBIN 30 ng/mL (10-92); TOTAL PROTEIN, SERUM 6.1 g/dL (6.0-8.3); TROPONIN I < 0.04 ng/mL (0.00-0.06)
[2021-05-05 15:10] LABS: B-TYPE NATRIURETIC PEPTIDE 32 pg/mL (0-100)
[2021-05-05 15:15] LABS: EOSINOPHILS % (MANUAL) 2 % (1-6); LYMPHOCYTES % (MANUAL) 70 % (22-44); MAN.DIFF COMMENT-IMPRESSION MANUAL DIFFERENTIAL; MONOCYTES % (MANUAL) 6 % (2-9); REACTIVE LYMPHOCYTES 4 % (0-0); SEGMENTED NEUTROPHILS % 18 % (40-70)
[2021-05-05 15:17] LABS: PLATELET MORPHOLOGY COMMENT MARKED DECREASE
[2021-05-05 15:21] LABS: ABG BASE EXCESS -2.5 mmol/L (-2.0-3.0); ABG HCO3 19.6 mmol/L (21.0-28.0); ABG OXYGEN SATURATION 97.3 % (95.0-99.0); ABG PCO2 28 mmHg (32-45)
[2021-05-05] MEDS ORDERED: FAMOTIDINE 20MG VIAL IV ONE (15:30)
[2021-05-05] MEDS ORDERED: INSULIN GLARGINE 100 UNITS/ML 10 ML VIAL SQ ONE (16:00)
[2021-05-05] MEDS ORDERED: 0.9%NACL 1000ML 1,000 ML IV ONE ×2 (16:00)
[2021-05-05 16:59] VITALS: BP 128/85
[2021-05-05] MEDS ORDERED: SOLU-MEDROL 125MG VIAL IVP ONE (17:30)
[2021-05-05] MEDS ORDERED: CEFTRIAXONE 1G VIAL IVP ONE (18:30)
[2021-05-05] MEDS ORDERED: PRED25PO13 MC (18:39)
[2021-05-05] MEDS ORDERED: METF-444 PO (18:39)
[2021-05-05] MEDS ORDERED: AZIT500T4 PO (18:39)
[2021-05-05] MEDS ORDERED: ALBU90AE2 IH (18:39)
[2021-05-05] MEDS ORDERED: SOLU-MEDROL 125MG VIAL ONE (18:39)
[2021-05-12] MEDS ORDERED: [UNRECOGNIZED DRUG - OTHER] PO (14:48)
[2021-05-12] MEDS ORDERED: PREDNISONA PO (14:48)
[2021-05-12] MEDS ORDERED: DEXAMETH (14:48)
[2021-05-12] MEDS ORDERED: METF-444 PO (14:48)
[2021-05-12] MEDS ORDERED: [UNRECOGNIZED DRUG - OTHER] (14:48)
[2021-05-12] MEDS ORDERED: [UNRECOGNIZED DRUG - OTHER] PO (14:48)
[2021-05-12] MEDS ORDERED: ALBU90AE2 IH (14:48)
[2021-05-12] MEDS ORDERED: AZIT500T4 PO (14:48)
[2021-05-12] MEDS ORDERED: AMBROXOL PO (14:48)
[2021-05-12] MEDS ORDERED: [UNRECOGNIZED DRUG - OTHER] PO (14:48)
== END 2021-05-05 19:05 | disposition home or self-care (01) ==
LOC: EDH 13:32
DX: J40 Bronchitis, not specified as acute or chronic (principal); E10.65 Type 1 diabetes mellitus with hyperglycemia; I10 Essential (primary) hypertension; D64.9 Anemia, unspecified; Z98.890 Other specified postprocedural states; Z79.899 Other long term (current) drug therapy; Z20.822 Contact with and (suspected) exposure to COVID-19
CPT/HCPCS: 36415; 36600; 71045; 80053; 82010; 82550; 82803; 82948; 83735; 83874; 83880; 84484; 85025; 85378; 85610; 87635; 87804 ×2; 93005; 96361; 96372; 96374; 96375; 99285; C9803; J0696; J2930; J3490; J7030